=== PATIENT | female | born 1975 | race Caucasian/White ===

== ENCOUNTER 2016-10-28 13:47 | Emergency (ER) | payer MEDICAID ==
[~2016-10-28 13:47] MED LIST: CEPHALEXIN500 MG PO; CIPRO500 MG PO; COL100 PO; DIFLUCAN150 MG PO; FERROUS SULFAT325 M2 PO; FLO4 PO; IBUPROFEN400 MG PO; LEVAQUIN750 MG PO; NORCO1 TA2 PO; OXYCODONE AND A PO; PYR100 PO; PYRIDIUM200 MG PO; T3 PO
[2016-10-28 16:14] VITALS: BP 110/79
== END 2016-10-28 16:14 | disposition home or self-care (01) ==
LOC: ED 13:47
DX: K52.9 Noninfective gastroenteritis and colitis, unspecified (principal); Z88.0 Allergy status to penicillin
CPT/HCPCS: J1885

== ENCOUNTER 2017-10-31 09:33 | Emergency (ER) | payer MEDICAID ==
[~2017-10-31] VITALS: Ht 167.6 cm; Wt 81.6 kg
[2017-10-31 09:41] VITALS: Ht 167.6 cm; Wt 81.6 kg
[2017-10-31 11:04] LABS: CALCIUM 8.8 mg/dL (8.5-10.1); CARBON DIOXIDE 28.6 mmol/L (21-32); CHLORIDE SERUM 106 mmol/L (98-107); CREATININE SERUM 0.8 mg/dL (0.6-1.0); GFR1 > 60 mL/min; GLUCOSE SERUM 89 mg/dL (74-106); POTASSIUM SERUM 4.6 mmol/L (3.5-5.1); SODIUM SERUM 140 mmol/L (136-145)
[2017-10-31 11:08] LABS: ALBUMIN 3.4 g/dL (3.4-5.0); ALKALINE PHOSPHATASE 91 U/L (46-116); ALT/SGPT 17 U/L (14-59); AST/SGOT 14 U/L (15-37); BASOPHIL % 0.6 % (0-2); BILIRUBIN TOTAL 0.19 mg/dL (0.20-1.00); CHOLESTEROL 138 mg/dL (<200); PLATELET COUNT 287 x10^3mcL (130-400); TOTAL PROTEIN, SERUM 7.4 g/dL (6.4-8.2)
[2017-10-31 11:09] LABS: RED CELL DISTRIBUTION WIDTH 18.9 % (11.5-14.5)
[2017-10-31 13:24] VITALS: BP 133/89
== END 2017-10-31 13:24 | disposition home or self-care (01) ==
LOC: ED 09:33
PROVIDERS: Specialist
DX: J02.9 Acute pharyngitis, unspecified (principal); R20.2 Paresthesia of skin; E11.9 Type 2 diabetes mellitus without complications; Z88.0 Allergy status to penicillin
CPT/HCPCS: 83880; G0480; J1885

== ENCOUNTER 2018-02-24 15:09 | Emergency (ER) | payer MEDICAID ==
[~2018-02-24] VITALS: Ht 160 cm; Wt 86.9 kg
[2018-02-24 15:21] VITALS: Ht 160 cm; Wt 86.9 kg
[2018-02-24 16:38] VITALS: BP 126/79
== END 2018-02-24 16:38 | disposition home or self-care (01) ==
LOC: ED 15:09
DX: H60.91 Unspecified otitis externa, right ear (principal); E11.9 Type 2 diabetes mellitus without complications; Z88.0 Allergy status to penicillin; Z87.442 Personal history of urinary calculi
CPT/HCPCS: J1885

== ENCOUNTER 2018-02-25 10:35 | Emergency (ER) | payer MEDICAID ==
[~2018-02-25] VITALS: Ht 162.6 cm; Wt 72.6 kg
[2018-02-25 10:40] VITALS: Ht 162.6 cm; Wt 72.6 kg
[2018-02-25 11:02] LABS: BASOPHIL % 0.5 % (0-2); PLATELET COUNT 289 x10^3mcL (130-400)
[2018-02-25 11:03] LABS: RED CELL DISTRIBUTION WIDTH 17.5 % (11.5-14.5)
[2018-02-25 11:11] LABS: CALCIUM 8.6 mg/dL (8.5-10.1); CARBON DIOXIDE 27.9 mmol/L (21-32); CHLORIDE SERUM 104 mmol/L (98-107); GFR1 > 60 mL/min; GLUCOSE SERUM 143 mg/dL (74-106); POTASSIUM SERUM 4.4 mmol/L (3.5-5.1); SODIUM SERUM 138 mmol/L (136-145)
[2018-02-25 11:16] LABS: ALBUMIN 3.5 g/dL (3.4-5.0); ALKALINE PHOSPHATASE 89 U/L (46-116); ALT/SGPT 20 U/L (14-59); AST/SGOT 14 U/L (15-37); BILIRUBIN TOTAL 0.2 mg/dL (0.20-1.00); TOTAL PROTEIN, SERUM 7.9 g/dL (6.4-8.2)
[2018-02-25 11:27] LABS: AMPHETAMINE QUAL UR NONE DETECTED (See below)
[2018-02-25 13:05] VITALS: BP 113/67
== END 2018-02-25 13:01 | disposition home or self-care (01) ==
LOC: ED 10:35
PROVIDERS: Emergency Medicine
DX: H60.91 Unspecified otitis externa, right ear (principal); F41.1 Generalized anxiety disorder; E11.9 Type 2 diabetes mellitus without complications; Z87.442 Personal history of urinary calculi; Z88.0 Allergy status to penicillin
CPT/HCPCS: G0480; J2060; J2270; J2550

== ENCOUNTER 2018-09-08 13:07 | Emergency (ER) | payer MEDICAID ==
[~2018-09-08] VITALS: Ht 160 cm; Wt 82.6 kg
[2018-09-08 13:20] VITALS: Ht 160 cm; Wt 82.6 kg
[2018-09-08 14:08] VITALS: BP 124/79
== END 2018-09-08 14:08 | disposition home or self-care (01) ==
LOC: ED 13:07
DX: R21 Rash and other nonspecific skin eruption (principal); Z87.442 Personal history of urinary calculi; Z88.0 Allergy status to penicillin

== ENCOUNTER 2019-08-20 07:29 | Emergency (ER) | payer OTHER ==
[~2019-08-20] VITALS: Ht 162.6 cm; Wt 78.5 kg
[2019-08-20 07:38] VITALS: BP 134/98; Ht 162.6 cm; Wt 78.5 kg
== END 2019-08-20 09:48 | disposition home or self-care (01) ==
LOC: ED 07:29
DX: M79.642 Pain in left hand (principal); Z88.0 Allergy status to penicillin
CPT/HCPCS: J1885; Q0092